=== PATIENT | male | born 1945 | race African-American/Black ===

== ENCOUNTER 2020-05-22 05:19 | Inpatient (IN) ==
[2020-05-16 11:13] LABS: Basophils % 0.6 % (0.0-0.8); Eosinophils # 0.2 10*3/uL (0.0-0.87); Eosinophils % 2.6 % (0.00-10.9); Hematocrit 37.6 VOL% (42.0-52.0); Hemoglobin 12.3 GM/DL (14.0-18.0); Immature Granulocytes % 0.2 %; Immature Granulocytes Absolute 0.01 #; Lymphocytes # 1.8 10*3/uL (1.4-4.0); Lymphocytes % 28.8 % (21.2-54.2); Mean Corpuscular HGB Conc 32.7 GM/DL (32-36); Mean Corpuscular Volume 90.2 FL (87-102); Mean Platelet Volume 11.3 FL (9.6-12.0); Monocytes % 9.4 % (1.7-12.7); Neutrophils % 58.4 % (38.7-73.9); Platelet Count 255 T/CUMM (130-400); Red Blood Count 4.17 MC/CUMM (3.8-5.5); Red Cell Distribution Width 13.4 % (9.3-17.3); White Blood Count 6.3 T/CUMM (4-12)
[2020-05-16 11:25] LABS: Apearance,Urine CLEAR (Clear); Bilirubin,Urine Negative (Negative); Blood, Urine Negative (Negative); Glucose,Urine (UA) Negative (Negative); Ketones,Urine Negative (Negative); Mucus,Urine Occasional /LPF (Occasional); Nitrite,Urine Negative (Negative); Protein,Urine Negative; RBC,Urine <1 /HPF (0-4); Urine Color Straw (Yellow); Urine Specific Gravity 1.011 (1.001-1.035); Urine Urobilinogen < 2.0 EU/DL (0.2-1.0)
[2020-05-16 11:25] LABS: INR 0.9; Partial Thromboplastin Time 28.2 SECS (23.9-33.8)
[2020-05-16 11:40] LABS: Albumin 3.3 G/DL (3.4-5.0); Bilirubin,Total 0.4 MG/DL (0.2-1.0); Calcium 10.1 MG/DL (8.5-10.1); Osmolality,Calculated 285.1 MOS/KG (273-304); Total Protein 7.4 G/DL (6.4-8.3)
[2020-05-22] MEDS ORDERED: CLINDAMYCIN INJ 50 ML IV ONE ×2 (05:58→12:51)
[2020-05-22] MEDS ORDERED: VANCOMYCIN 1,000 MG VIAL ONE (05:58)
[2020-05-22] MEDS ORDERED: VANCOMYCIN INJ 1,000 MG in SODIUM CHLORIDE 0.9% 250 ML IV ONE (06:00)
[2020-05-22] MEDS ORDERED: CLINDAMYCIN INJ 900 MG in PREMIX 1 EACH IV ONE (06:00)
[2020-05-22] MEDS ORDERED: DIAZEPAM 5 MG TABLET PO ONE (06:37)
[2020-05-22] MEDS ORDERED: GABAPENTIN 400 MG CAPSULE PO ONE (06:37)
[2020-05-22] MEDS ORDERED: ACETAMINOPHEN 500 MG TABLET PO ONE (06:37)
[2020-05-22] MEDS ORDERED: FAMOTIDINE 20 MG TABLET PO ONE (06:37)
[2020-05-22] MEDS ORDERED: SOTALOL 80 MG TABLET PO STA (06:46)
[2020-05-22] MEDS ORDERED: BACITRACIN OINT 0.9 GM PACK TOP ONE (06:51)
[2020-05-22] MEDS ORDERED: LACTATED RINGERS 1,000 ML IV SCH (07:00)
[2020-05-22] MEDS ORDERED: GABAPENTIN 400 MG CAPSULE ONE (07:11)
[2020-05-22] MEDS ORDERED: DIAZEPAM 5 MG TABLET ONE (07:11)
[2020-05-22] MEDS ORDERED: ACETAMINOPHEN 500 MG TABLET ONE (07:11)
[2020-05-22] MEDS ORDERED: FAMOTIDINE 20 MG TABLET ONE (07:12)
[2020-05-22] MEDS ORDERED: DEXAMETHASONE 4 MG/1 ML VIAL ONE ×2 (07:25→10:40)
[2020-05-22] MEDS ORDERED: ROPIVACAINE 0.5% 30 ML VIAL ONE ×3 (07:25→12:32)
[2020-05-22] MEDS ORDERED: PHENYLEPHRINE DRIP 20 MG/250 ML PREMIX IV ONE (07:25)
[2020-05-22] MEDS ORDERED: ZALEPLON 5 MG CAPSULE PO PRN (08:46)
[2020-05-22] MEDS ORDERED: ONDANSETRON 4 MG/2 ML VIAL IV PRN ×2 (08:46→10:34)
[2020-05-22] MEDS ORDERED: MORPHINE 4 MG/1 ML VIAL IV PRN (08:46)
[2020-05-22] MEDS ORDERED: TRANEXAMIC ACID 1,000 MG/10 ML VIAL ONE (09:29)
[2020-05-22] MEDS ORDERED: diphenhydrAMINE 50 MG/1 ML VIAL IV PRN (10:34)
[2020-05-22] MEDS ORDERED: PROMETHAZINE INJ 25 MG in SODIUM CHLORIDE 0.9% 50 ML IV PRN (10:34)
[2020-05-22] MEDS: LACTATED RINGERS 1,000 ML IV SCH ×2 (10:38→22:40)
[2020-05-22] MEDS ORDERED: propofoL 200 MG/20 ML VIAL IV ONE (10:39)
[2020-05-22] MEDS ORDERED: LIDOCAINE 1% 5 ML VIAL ONE (10:39)
[2020-05-22] MEDS ORDERED: fentaNYL 100 MCG/2 ML VIAL ONE (10:40)
[2020-05-22] MEDS ORDERED: ePHEDrine 50 MG/ML VIAL ONE (10:40)
[2020-05-22] MEDS ORDERED: MIDAZOLAM 2 MG/2 ML VIAL ONE (10:40)
[2020-05-22] MEDS ORDERED: MEPERIDINE 25 MG/1 ML VIAL ONE ×2 (10:58→11:50)
[2020-05-22] MEDS ORDERED: ONDANSETRON 4 MG/2 ML VIAL ONE (10:58)
[2020-05-22] MEDS: MEPERIDINE 25 MG/1 ML VIAL IV PRN ×2 (11:05→12:00)
[2020-05-22] MEDS ORDERED: KETOROLAC 15 MG/1 ML VIAL ONE ×2 (11:09→16:02)
[2020-05-22] MEDS: KETOROLAC 15 MG/1 ML VIAL IV SCH ×2 (11:17→19:17)
[2020-05-22] MEDS ORDERED: PROMETHAZINE 25 MG/1 ML VIAL ONE (11:56)
[2020-05-22] MEDS: HYDROmorphone 2 MG/1 ML VIAL IV PRN ×4 (12:20→12:35)
[2020-05-22] MEDS ORDERED: HYDROmorphone 2 MG/1 ML VIAL ONE (12:20)
[2020-05-22] MEDS ORDERED: LABETALOL 100 MG/20 ML VIAL IV ONE (12:46)
[2020-05-22] MEDS: CLINDAMYCIN INJ 900 MG in PREMIX 1 EACH IV SCH ×2 (12:53→22:07)
[2020-05-22] MEDS: POTASSIUM CHLORIDE 20 MEQ TABLET PO SCH (16:06)
[2020-05-22] MEDS: FUROSEMIDE 40 MG TABLET PO SCH (17:27)
[2020-05-22] MEDS: MORPHINE 4 MG/1 ML VIAL IV PRN ×2 (17:27→23:00)
[2020-05-22] MEDS: SIMVASTATIN 20 MG TABLET PO SCH (17:27)
[2020-05-22] MEDS: BRIMONIDINE 0.1% OPH SOLN 5 ML BOTTLE BOTH EYES SCH ×2 (19:17→22:10)
[2020-05-22] MEDS ORDERED: CLINDAMYCIN INJ 900 MG in PREMIX 1 EACH IV SCH (22:00)
[2020-05-22] MEDS: DOCUSATE SODIUM 100 MG CAPSULE PO SCH (22:03)
[2020-05-22] MEDS: lisinopriL 20 MG TABLET PO SCH (22:03)
[2020-05-23] MEDS: KETOROLAC 15 MG/1 ML VIAL IV SCH ×2 (00:02→06:42)
[2020-05-23] MEDS: FONDAPARINUX 2.5 MG/0.5 ML SYRINGE SUBCUT SCH (06:44)
[2020-05-23 07:21] LABS: Basophils % 0.2 % (0.0-0.8); Eosinophils % 0.4 % (0.00-10.9); Hematocrit 32.7 VOL% (42.0-52.0); Hemoglobin 10.6 GM/DL (14.0-18.0); Immature Granulocytes % 0.3 %; Immature Granulocytes Absolute 0.03 #; Lymphocytes # 2.3 10*3/uL (1.4-4.0); Mean Corpuscular HGB Conc 32.4 GM/DL (32-36); Mean Corpuscular Volume 89.6 FL (87-102); Mean Platelet Volume 10.3 FL (9.6-12.0); Monocytes % 17.5 % (1.7-12.7); Neutrophils % 60.6 % (38.7-73.9); Platelet Count 209 T/CUMM (130-400); Red Blood Count 3.65 MC/CUMM (3.8-5.5); White Blood Count 10.7 T/CUMM (4-12)
[2020-05-23 07:35] LABS: Calcium 9.4 MG/DL (8.5-10.1); Osmolality,Calculated 283.3 MOS/KG (273-304)
[2020-05-23 07:44] LABS: Hypochromasia 1+; Lymphocytes 25 % (20-55); Platelet Estimate Adequate; Segmented Neutrophils 59 % (50-85); Total Cells Counted 100
[2020-05-23] MEDS: BRIMONIDINE 0.1% OPH SOLN 5 ML BOTTLE BOTH EYES SCH ×4 (08:15→21:55)
[2020-05-23] MEDS: DOCUSATE SODIUM 100 MG CAPSULE PO SCH ×2 (08:18→21:09)
[2020-05-23] MEDS: POTASSIUM CHLORIDE 20 MEQ TABLET PO SCH (08:18)
[2020-05-23] MEDS: FEXOFENADINE 180 MG TABLET PO SCH (08:18)
[2020-05-23] MEDS: SOTALOL 80 MG TABLET PO SCH (08:19)
[2020-05-23] MEDS: lisinopriL 20 MG TABLET PO SCH ×2 (08:19→21:10)
[2020-05-23] MEDS: SIMVASTATIN 20 MG TABLET PO SCH (08:19)
[2020-05-23] MEDS: FUROSEMIDE 40 MG TABLET PO SCH (08:20)
[2020-05-24 06:10] LABS: Basophils % 0.3 % (0.0-0.8); Eosinophils # 0.2 10*3/uL (0.0-0.87); Eosinophils % 1.8 % (0.00-10.9); Hematocrit 30.8 VOL% (42.0-52.0); Hemoglobin 9.9 GM/DL (14.0-18.0); Immature Granulocytes % 0.4 %; Immature Granulocytes Absolute 0.04 #; Lymphocytes # 2.4 10*3/uL (1.4-4.0); Mean Corpuscular HGB Conc 32.1 GM/DL (32-36); Mean Corpuscular Volume 91.1 FL (87-102); Mean Platelet Volume 10.5 FL (9.6-12.0); Monocytes % 12.8 % (1.7-12.7); Neutrophils % 62.7 % (38.7-73.9); Platelet Count 189 T/CUMM (130-400); Red Blood Count 3.38 MC/CUMM (3.8-5.5); White Blood Count 10.7 T/CUMM (4-12)
[2020-05-24] MEDS: FONDAPARINUX 2.5 MG/0.5 ML SYRINGE SUBCUT SCH (06:13)
[2020-05-24] MEDS: FUROSEMIDE 40 MG TABLET PO SCH (10:10)
[2020-05-24] MEDS: lisinopriL 20 MG TABLET PO SCH ×2 (10:10→20:51)
[2020-05-24] MEDS: POTASSIUM CHLORIDE 20 MEQ TABLET PO SCH (10:11)
[2020-05-24] MEDS: FEXOFENADINE 180 MG TABLET PO SCH (10:11)
[2020-05-24] MEDS: BRIMONIDINE 0.1% OPH SOLN 5 ML BOTTLE BOTH EYES SCH ×3 (10:11→20:52)
[2020-05-24] MEDS: DOCUSATE SODIUM 100 MG CAPSULE PO SCH ×2 (10:26→20:51)
[2020-05-24] MEDS: SOTALOL 80 MG TABLET PO SCH (11:08)
[2020-05-24] MEDS: MAGNESIUM HYDROXIDE SUSP 30 ML UDCUP PO PRN (17:27)
[2020-05-24] MEDS ORDERED: SIMVASTATIN 20 MG TABLET PO SCH (21:00)
[2020-05-25] MEDS: FONDAPARINUX 2.5 MG/0.5 ML SYRINGE SUBCUT SCH (05:43)
[2020-05-25 06:08] LABS: Basophils % 0.2 % (0.0-0.8); Eosinophils # 0.2 10*3/uL (0.0-0.87); Eosinophils % 2.4 % (0.00-10.9); Hematocrit 30.1 VOL% (42.0-52.0); Hemoglobin 9.6 GM/DL (14.0-18.0); Immature Granulocytes % 0.5 %; Immature Granulocytes Absolute 0.04 #; Lymphocytes # 1.8 10*3/uL (1.4-4.0); Lymphocytes % 20.9 % (21.2-54.2); Mean Corpuscular HGB Conc 31.9 GM/DL (32-36); Mean Corpuscular Volume 91.5 FL (87-102); Mean Platelet Volume 10.8 FL (9.6-12.0); Monocytes % 13.3 % (1.7-12.7); Neutrophils % 62.7 % (38.7-73.9); Platelet Count 184 T/CUMM (130-400); Red Blood Count 3.29 MC/CUMM (3.8-5.5); Red Cell Distribution Width 13.9 % (9.3-17.3); White Blood Count 8.8 T/CUMM (4-12)
[2020-05-25 07:54] VITALS: BP 135/49
[2020-05-25] MEDS: lisinopriL 20 MG TABLET PO SCH (08:29)
[2020-05-25] MEDS: FUROSEMIDE 40 MG TABLET PO SCH (08:29)
[2020-05-25] MEDS: FEXOFENADINE 180 MG TABLET PO SCH (08:29)
[2020-05-25] MEDS: POTASSIUM CHLORIDE 20 MEQ TABLET PO SCH (08:29)
[2020-05-25] MEDS: SOTALOL 80 MG TABLET PO SCH (08:30)
[2020-05-25] MEDS: DOCUSATE SODIUM 100 MG CAPSULE PO SCH (08:30)
[2020-05-25] MEDS: BRIMONIDINE 0.1% OPH SOLN 5 ML BOTTLE BOTH EYES SCH (08:33)
[2020-05-25] MEDS: MAGNESIUM HYDROXIDE SUSP 30 ML UDCUP PO PRN (09:00)
== END 2020-05-25 10:58 | DRG 470 ==
LOC: N.OR 05:19 → N.SDSINP 05:21 → N.3E 16:27
PROVIDERS: ADMIT Orthopaedic Surgery; ATTEND Orthopaedic Surgery